=== PATIENT | female | born 1945 | race Two or more races ===

== ENCOUNTER 2017-11-19 22:33 | Emergency (ER) | payer MEDICAID ==
[~2017-11-19] VITALS: Ht 167.6 cm; Wt 81.6 kg
--- NOTE | 2017-11-19 22:50 | NUR ---
PT A/OX4 BREATHING EFFORTLESSLY ONROOM AIR, PT BIB SON FROM HOME, PT STATES HER BP HAS BEEN HIGHER THAN NORMAL X 3 DAYS AND HAS BEEN FEELING DIZZY X 3 DAYS, PT WALKING WITH A STEADY GAIT, MD IN ROOM, SON IN ROOM, PT IN GOWN ON MONITOR, WILL CONITNUE TO MONITOR.
[2017-11-19 23:32] LABS: APPEARANCE,URINE CLEAR (CLEAR); BILIRUBIN,URINE NEGATIVE (NEGATIVE); BLOOD, URINE NEGATIVE Ery/uL (NEGATIVE); KETONES,URINE NEGATIVE (NEGATIVE); LEUKOCYTE ESTERASE ,URINE NEGATIVE (NEGATIVE); NITRITE, URINE NEGATIVE (NEGATIVE); PROTEIN,URINE NEGATIVE (NEGATIVE); UGLUCOSE NEGATIVE (NEGATIVE); UROBILINOGEN,URINE 0.2 EU/dL (0.2)
[2017-11-19 23:35] LABS: COLOR,URINE STRAW (YELLOW)
[2017-11-20 02:45] VITALS: BP 140/78
== END 2017-11-20 02:46 | disposition home or self-care (01) ==
LOC: ER 22:33
DX: I10 Essential (primary) hypertension (principal); E03.9 Hypothyroidism, unspecified; E78.5 Hyperlipidemia, unspecified; F17.200 Nicotine dependence, unspecified, uncomplicated; G89.29 Other chronic pain; M81.0 Age-related osteoporosis without current pathological fracture; Z85.3 Personal history of malignant neoplasm of breast
CPT/HCPCS: 70450; 81001; 99285; A4606; Z7610; 81000-TC

== ENCOUNTER 2022-12-13 06:48 | Inpatient (IN) | payer MEDICAID ==
[~2022-12-13] VITALS: Ht 165.1 cm; Wt 68.0 kg
[2022-12-13 07:22] LABS: BASOPHILS % (AUTO) 0.2 % (0.0-2.0); EOSINOPHILS % (AUTO) 0.3 % (0.0-6.0); HEMATOCRIT 36 % (33-45); HEMOGLOBIN 12.1 g/dL (11.5-14.8); LYMPHOCYTES # (AUTO) 1.2 K/uL (0.8-4.8); LYMPHOCYTES % (AUTO) 11.5 % (20.0-44.0); MEAN CORPUSCULAR HGB CONC 33 g/dl (31.0-36.0); MEAN CORPUSCULAR VOLUME 87 fL (82-100); MONOCYTES # (AUTO) 0.5 K/uL (0.1-1.30); MONOCYTES % (AUTO) 5.1 % (2.0-12.0); NEUTROPHILS # (AUTO) 8.3 K/uL (1.8-8.9); NEUTROPHILS % (AUTO) 82.9 % (43.0-81.0); PLATELET COUNT (AUTO) 281 K/uL (150-450); RED BLOOD CELL COUNT(AUTO) 4.13 MIL/uL (4.0-5.2)
[2022-12-13 07:26] LABS: CARBON DIOXIDE 26 mmol/L (21-32); CHLORIDE 103 mmol/L (98-107); CREATININE 0.8 mg/dL (0.6-1.3); GLUCOSE 169 mg/dL (74-106); SODIUM SERUM 137 mmol/L (136-145); UREA NITROGEN, BLOOD 15 mg/dL (7-18)
[2022-12-13 07:34] LABS: CALCIUM, SERUM 9.1 mg/dL (8.5-10.1)
[2022-12-13] MEDS ORDERED: IV NS 0.9% 1,000 ML IV ONE (08:00)
[2022-12-13] MEDS ORDERED: ZOLP10TA2 PO (08:27)
[2022-12-13] MEDS ORDERED: LEVO-148 PO (08:27)
[2022-12-13] MEDS ORDERED: LOSA25TA27 PO (08:27)
[2022-12-13] MEDS ORDERED: AMIT10TA6 PO (08:27)
[2022-12-13] MEDS ORDERED: OLME20TA23 PO (08:27)
[2022-12-13] MEDS ORDERED: EZET10TA32 PO (08:27)
[2022-12-13] MEDS ORDERED: ACETAMINOPHEN 325 MG TABLET PO PRN (10:30)
[2022-12-13] MEDS ORDERED: MAGNESIUM HYDROXIDE 30 ML UDC PO PRN (10:30)
[2022-12-13] MEDS ORDERED: MAG HYDROX/AL HYDROX/SIMETH 30 ML UDC PO PRN (10:30)
[2022-12-13] MEDS ORDERED: ONDANSETRON HCL/PF 4 MG/2 ML VIAL IVP PRN (10:30)
[2022-12-13] MEDS ORDERED: Z GUARD REMEDY 4 OZ OINT TP PRN (10:30)
[2022-12-13] MEDS: VALSARTAN 80 MG TABLET PO SCH (13:00)
[2022-12-13] MEDS: ENOXAPARIN SODIUM 40 MG/0.4 ML DISP.SYRIN SQ SCH (13:13)
[2022-12-13] MEDS: AMITRIPTYLINE HCL 10 MG TABLET PO SCH (17:19)
[2022-12-13 20:00] VITALS: BP 97/54
[2022-12-13 20:43] VITALS: BP 115/56
[2022-12-13 20:44] VITALS: BP 97/54
[2022-12-13] MEDS: ZOLPIDEM TARTRATE 10 MG TABLET PO PRN (21:36)
[2022-12-13] MEDS: SENNOSIDES 8.6 MG TABLET PO SCH (22:16)
[2022-12-14] VITALS (7 sets, daily range): BP systolic 92–133; BP diastolic 48–85
[2022-12-14 06:35] LABS: BASOPHILS % (AUTO) 0.2 % (0.0-2.0); EOSINOPHILS % (AUTO) 0.5 % (0.0-6.0); HEMATOCRIT 35 % (33-45); HEMOGLOBIN 11.5 g/dL (11.5-14.8); LYMPHOCYTES # (AUTO) 1.1 K/uL (0.8-4.8); LYMPHOCYTES % (AUTO) 11.3 % (20.0-44.0); MEAN CORPUSCULAR HGB CONC 33 g/dl (31.0-36.0); MEAN CORPUSCULAR VOLUME 87 fL (82-100); MONOCYTES # (AUTO) 0.9 K/uL (0.1-1.30); MONOCYTES % (AUTO) 9.3 % (2.0-12.0); NEUTROPHILS # (AUTO) 7.6 K/uL (1.8-8.9); NEUTROPHILS % (AUTO) 78.7 % (43.0-81.0); PLATELET COUNT (AUTO) 220 K/uL (150-450); RED BLOOD CELL COUNT(AUTO) 3.96 MIL/uL (4.0-5.2); WHITE BLOOD COUNT (AUTO) 9.6 K/uL (4.3-11.0)
[2022-12-14 07:04] LABS: CALCIUM, SERUM 8.6 mg/dL (8.5-10.1); CREATININE 0.7 mg/dL (0.6-1.3); POTASSIUM 3.8 mmol/L (3.5-5.1)
[2022-12-14 07:46] LABS: PHOSPHORUS 2.9 mg/dL (2.5-4.9)
[2022-12-14] MEDS: EZETIMIBE 10 MG TABLET PO SCH (08:59)
[2022-12-14] MEDS: ASPIRIN 81 MG TAB.CHEW PO SCH (08:59)
[2022-12-14] MEDS: LEVOTHYROXINE SODIUM 125 MCG TABLET PO SCH (08:59)
[2022-12-14] MEDS: VALSARTAN 80 MG TABLET PO SCH (09:00)
[2022-12-14] MEDS ORDERED: IOHEXOL-350 100 ML VIAL IV ONE (10:21)
[2022-12-14] MEDS ORDERED: NITROGLYCERIN 0.4 MG/TAB BOTTLE ONE (10:22)
[2022-12-14] MEDS ORDERED: CT SWABBABLE VALVE TRANS SET 1 EA INFUS.SET MC ONE (10:22)
[2022-12-14] MEDS ORDERED: IV NS 0.9% 250 ML IV ONE (10:23)
[2022-12-14] MEDS ORDERED: METOPROLOL TARTRATE INJ 5 MG/5 ML AMPUL IVP PRN (10:30)
[2022-12-14] MEDS ORDERED: NITROGLYCERIN 0.4 MG/TAB BOTTLE SL ONE (10:30)
[2022-12-14] MEDS: ENOXAPARIN SODIUM 40 MG/0.4 ML DISP.SYRIN SQ SCH (11:35)
[2022-12-14] MEDS: AMITRIPTYLINE HCL 10 MG TABLET PO SCH (17:19)
[2022-12-14] MEDS: SENNOSIDES 8.6 MG TABLET PO SCH (21:17)
[2022-12-14] MEDS: ZOLPIDEM TARTRATE 10 MG TABLET PO PRN (21:17)
[2022-12-15] VITALS: BP 115/60
[2022-12-15 04:00] VITALS: BP 100/52
[2022-12-15] MEDS: LEVOTHYROXINE SODIUM 125 MCG TABLET PO SCH (08:28)
[2022-12-15] MEDS: EZETIMIBE 10 MG TABLET PO SCH (08:29)
[2022-12-15] MEDS: ASPIRIN 81 MG TAB.CHEW PO SCH (08:29)
[2022-12-15] MEDS: VALSARTAN 80 MG TABLET PO SCH (08:31)
[2022-12-15] MEDS: ATORVASTATIN 40 MG TABLET PO SCH (09:34)
[2022-12-15] MEDS: ENOXAPARIN SODIUM 40 MG/0.4 ML DISP.SYRIN SQ SCH (09:37)
[2022-12-15] MEDS: AMITRIPTYLINE HCL 10 MG TABLET PO SCH (17:19)
[2022-12-15 20:00] VITALS: BP 119/62
[2022-12-15] MEDS: ZOLPIDEM TARTRATE 10 MG TABLET PO PRN (20:15)
[2022-12-15] MEDS: SENNOSIDES 8.6 MG TABLET PO SCH (20:15)
[2022-12-16] VITALS: BP 105/56
[2022-12-16 00:30] VITALS: BP 156/92
[2022-12-16 04:00] VITALS: BP 110/60
[2022-12-16] MEDS: LEVOTHYROXINE SODIUM 125 MCG TABLET PO SCH (07:41)
[2022-12-16] MEDS: EZETIMIBE 10 MG TABLET PO SCH (08:22)
[2022-12-16] MEDS: ATORVASTATIN 40 MG TABLET PO SCH (08:22)
[2022-12-16] MEDS: ASPIRIN 81 MG TAB.CHEW PO SCH (08:22)
[2022-12-16] MEDS: VALSARTAN 80 MG TABLET PO SCH (08:22)
[2022-12-16 08:38] VITALS: BP 94/52
[2022-12-16] MEDS: ENOXAPARIN SODIUM 40 MG/0.4 ML DISP.SYRIN SQ SCH (10:07)
[2022-12-16 16:52] VITALS: BP 91/50
[2022-12-16] MEDS: AMITRIPTYLINE HCL 10 MG TABLET PO SCH (17:48)
[2022-12-16 20:00] VITALS: BP 103/53
[2022-12-16] MEDS: ZOLPIDEM TARTRATE 10 MG TABLET PO PRN (20:12)
[2022-12-16] MEDS: SENNOSIDES 8.6 MG TABLET PO SCH ×2 (20:13→21:34)
[2022-12-17 04:30] VITALS: BP 107/59
[2022-12-17 06:25] LABS: BASOPHILS % (AUTO) 0.4 % (0.0-2.0); EOSINOPHILS % (AUTO) 2.1 % (0.0-6.0); HEMATOCRIT 32 % (33-45); HEMOGLOBIN 10.6 g/dL (11.5-14.8); LYMPHOCYTES # (AUTO) 1.1 K/uL (0.8-4.8); MEAN CORPUSCULAR HGB CONC 33 g/dl (31.0-36.0); MEAN CORPUSCULAR VOLUME 87 fL (82-100); MONOCYTES # (AUTO) 0.8 K/uL (0.1-1.30); MONOCYTES % (AUTO) 10.6 % (2.0-12.0); NEUTROPHILS % (AUTO) 70.9 % (43.0-81.0); PLATELET COUNT (AUTO) 193 K/uL (150-450); RED BLOOD CELL COUNT(AUTO) 3.62 MIL/uL (4.0-5.2); WHITE BLOOD COUNT (AUTO) 7.1 K/uL (4.3-11.0)
[2022-12-17 06:43] LABS: CALCIUM, SERUM 8.6 mg/dL (8.5-10.1); CREATININE 0.7 mg/dL (0.6-1.3); POTASSIUM 3.9 mmol/L (3.5-5.1)
[2022-12-17 07:00] VITALS: BP 103/56
[2022-12-17] MEDS: LEVOTHYROXINE SODIUM 125 MCG TABLET PO SCH (07:30)
[2022-12-17] MEDS: ASPIRIN 81 MG TAB.CHEW PO SCH (09:00)
[2022-12-17] MEDS: ATORVASTATIN 40 MG TABLET PO SCH (09:00)
[2022-12-17] MEDS: EZETIMIBE 10 MG TABLET PO SCH (09:00)
[2022-12-17] MEDS: VALSARTAN 80 MG TABLET PO SCH (09:00)
[2022-12-17] MEDS: ENOXAPARIN SODIUM 40 MG/0.4 ML DISP.SYRIN SQ SCH (10:30)
[2022-12-17 11:31] VITALS: BP 96/59
[2022-12-17] MEDS ORDERED: IV SET PRIMARY PUMP SET 1 EA INFUS.SET MC ONE (14:18)
[2022-12-17] MEDS ORDERED: IV NS 0.9% 1,000 ML ONE (14:18)
[2022-12-17] MEDS ORDERED: IODIXANOL 150 ML IV ONE (14:19)
[2022-12-17] MEDS ORDERED: NITROGLYCERIN IN 5 % DEXTROSE 250 ML IV ONE (14:19)
[2022-12-17] MEDS ORDERED: LIDOCAINE HCL/MPF 1% 30 ML VIAL IJ ONE (14:19)
[2022-12-17] MEDS ORDERED: MIDAZOLAM HCL 2 MG/2ML VIAL ONE (15:05)
[2022-12-17] MEDS ORDERED: FENTANYL PF 100MCG/2ML AMPUL ONE (15:05)
[2022-12-17 16:00] VITALS: BP 144/77
[2022-12-17] MEDS: AMITRIPTYLINE HCL 10 MG TABLET PO SCH (17:32)
[2022-12-17] MEDS: FLUTICASONE PROPIONATE 16 GM BOTTLE NS SCH (17:47)
[2022-12-17 20:00] VITALS: BP 107/53
[2022-12-17] MEDS: ZOLPIDEM TARTRATE 10 MG TABLET PO PRN (20:38)
[2022-12-17] MEDS: SENNOSIDES 8.6 MG TABLET PO SCH (20:38)
[2022-12-18 00:30] VITALS: BP 101/42
[2022-12-18 04:00] VITALS: BP 103/45
[2022-12-18 06:35] VITALS: BP 103/45
[2022-12-18 06:53] LABS: BASOPHILS % (AUTO) 0.4 % (0.0-2.0); HEMATOCRIT 33 % (33-45); HEMOGLOBIN 10.8 g/dL (11.5-14.8); LYMPHOCYTES % (AUTO) 15.7 % (20.0-44.0); MEAN CORPUSCULAR HGB CONC 33 g/dl (31.0-36.0); MEAN CORPUSCULAR VOLUME 88 fL (82-100); MONOCYTES # (AUTO) 0.7 K/uL (0.1-1.30); MONOCYTES % (AUTO) 10.2 % (2.0-12.0); NEUTROPHILS # (AUTO) 4.6 K/uL (1.8-8.9); NEUTROPHILS % (AUTO) 71.7 % (43.0-81.0); PLATELET COUNT (AUTO) 226 K/uL (150-450); RED BLOOD CELL COUNT(AUTO) 3.79 MIL/uL (4.0-5.2); WHITE BLOOD COUNT (AUTO) 6.4 K/uL (4.3-11.0)
[2022-12-18 07:03] LABS: CALCIUM, SERUM 8.6 mg/dL (8.5-10.1); CREATININE 0.8 mg/dL (0.6-1.3); POTASSIUM 4.2 mmol/L (3.5-5.1)
[2022-12-18] MEDS: EZETIMIBE 10 MG TABLET PO SCH (08:49)
[2022-12-18] MEDS: FLUTICASONE PROPIONATE 16 GM BOTTLE NS SCH ×2 (08:49→08:53)
[2022-12-18] MEDS: ATORVASTATIN 40 MG TABLET PO SCH (08:49)
[2022-12-18] MEDS: LEVOTHYROXINE SODIUM 125 MCG TABLET PO SCH (08:49)
[2022-12-18] MEDS: ASPIRIN 81 MG TAB.CHEW PO SCH (08:50)
[2022-12-18] MEDS: VALSARTAN 80 MG TABLET PO SCH (08:50)
[2022-12-18 08:52] VITALS: BP 97/53
[2022-12-18] MEDS ORDERED: ASPI-1169 PO ×2 (10:52→12:01)
[2022-12-18] MEDS: ENOXAPARIN SODIUM 40 MG/0.4 ML DISP.SYRIN SQ SCH (11:04)
[2022-12-18] MEDS ORDERED: ATOR40TA PO (12:01)
== END 2022-12-18 12:50 | disposition home or self-care (01) | DRG 190 ==
LOC: ER 06:59 → TELE 09:03
PROVIDERS: ADMIT Nurse Practitioner Acute Care; ATTEND Nurse Practitioner Acute Care
PROC: 4A023N7 Measurement of Cardiac Sampling and Pressure, Left Heart, Percutaneous Approach (ICD-10-PCS; principal; 2022-12-17)
PROC: B211YZZ Fluoroscopy of Multiple Coronary Arteries using Other Contrast (ICD-10-PCS; 2022-12-17)
DX: I25.110 Atherosclerotic heart disease of native coronary artery with unstable angina pectoris (principal); I21.A1 Myocardial infarction type 2; J81.1 Chronic pulmonary edema; I25.82 Chronic total occlusion of coronary artery; G47.00 Insomnia, unspecified; E03.9 Hypothyroidism, unspecified; E78.5 Hyperlipidemia, unspecified; I10 Essential (primary) hypertension; Z85.3 Personal history of malignant neoplasm of breast; M81.0 Age-related osteoporosis without current pathological fracture; G89.29 Other chronic pain; F17.210 Nicotine dependence, cigarettes, uncomplicated; Z79.899 Other long term (current) drug therapy; R00.1 Bradycardia, unspecified
CPT/HCPCS: 36415; 71045-TC; 75574; 80048-TC; 80061-TC; 83735-TC; 84100-TC; 84484-TC; 85025-TC; 85610-TC; 87081-TC; 93307-TC; A4223; C9803; G0378; G0500; J1644; J1650; J2250; J3010; J3490; J7030; J7050; Q9967